=== PATIENT | male | born 1980 ===

== ENCOUNTER → 2024-06-05 | Outpatient (CLI) | payer OTHER ==
[2024-06-05 20:10] LABS: Ferritin, Serum 24 ng/mL (26-388); Iron Serum 99 ug/dL (65-175); Percent Saturation 30.7 % (20.0-50.0); Prostate Specific Antigen 0.827 ng/mL (0.000-4.000); Total Iron Binding Capacity 323 ug/dL (250-450)
[2024-06-07 16:59] LABS: HEPATITIS C AB CIA INTERP Negative (Negative); HEPATITIS C ANTIBODY CIA INDEX 0.07 IV
[2024-06-07 17:53] LABS: HIV 1,2 COMBO ANTIGEN/ANTIBODY Negative (Negative)
== END ==
LOC: LAB SHORT 18:37 → LAB 18:37
PROVIDERS: Nurse Practitioner Family
DX: Z11.4 Encounter for screening for human immunodeficiency virus [HIV] (principal); Z11.59 Encounter for screening for other viral diseases; Z12.5 Encounter for screening for malignant neoplasm of prostate; Z86.2 Personal history of diseases of the blood and blood-forming organs and certain disorders involving the immune mechanism
CPT/HCPCS: 82728; 83540; 83550; 86803; 87389; G0103